=== PATIENT | female | born 1945 | race Caucasian/White ===

== ENCOUNTER 2016-10-07 02:40 | Observation (INO) | payer MEDICARE, OTHER ==
[~2016-10-07] VITALS: Ht 162.6 cm; Wt 85.5 kg
[2016-10-07] VITALS (9 sets, daily range): BP systolic 105–181; BP diastolic 62–102; PULSE 50–80; RESP 16–18; TEMP 96.4–98.5; O2SAT 8–100
[~2016-10-07 02:40] MED LIST: 1-ME1LIQ PO; ALLO100T PO; HYDR-2768 PO; LOPI600T PO; LORTA5 PO; METO50TA PO; OMEG100010 PO; OMEP20TA39 PO; PREM0.45 PO; TAB-TAB PO; VITA500C PO
[2016-10-07 03:34] LABS: AUTOMATED NEUTROPHIL # 4.3 TH/MM3 (1.8-7.7); BASOPHIL # 0.2 TH/MM3 (0-0.2); BASOPHIL % 2.1 % (0.0-2.0); EOSINOPHIL # 0.3 TH/MM3 (0-0.4); EOSINOPHIL % 4.1 % (0.0-4.0); HEMATOCRIT 41.5 % (35.0-46.0); LYMPHOCYTE # 2.1 TH/MM3 (1.0-4.8); MEAN CELL VOLUME 92.5 FL (80.0-100.0); MEAN CORPUSCULAR HGB CONC 33.5 % (32.0-36.0); NEUT % 56.8 % (16.0-70.0); PLATELET COUNT 196 TH/MM3 (150-450); RED BLOOD COUNT 4.48 MIL/MM3 (4.00-5.30); RED CELL DISTRIBUTION WIDTH 12.9 % (11.6-17.2); WHITE BLOOD COUNT 7.7 TH/MM3 (4.0-11.0)
[2016-10-07 03:35] LABS: HEMO FLAGS DIFF FINAL
[2016-10-07 03:40] LABS: CHLORIDE 103 MEQ/L (98-107); POTASSIUM 3.1 MEQ/L (3.5-5.1); SODIUM (NA) 141 MEQ/L (136-145)
[2016-10-07 03:44] LABS: ANION GAP 11 MEQ/L (5-15); BICARBONATE 27.1 MEQ/L (21.0-32.0); BLOOD UREA NITROGEN 16 MG/DL (7-18)
[2016-10-07] MEDS ORDERED: PANTOPRAZOLE SODIUM 40 MG VIAL IV PUSH ONE (03:45)
[2016-10-07] MEDS ORDERED: ONDANSETRON HCL 4 MG/2 ML VIAL IV PUSH ONE (03:45)
[2016-10-07] MEDS ORDERED: ASPIRIN 81 MG CHEW TAB CHEW ONE (03:45)
[2016-10-07] MEDS ORDERED: VITA500T PO (03:46)
[2016-10-07] MEDS ORDERED: AMLO10TA2 PO (03:46)
[2016-10-07] MEDS ORDERED: GEMF600 PO (03:46)
[2016-10-07] MEDS ORDERED: ALLO100T PO (03:46)
[2016-10-07] MEDS ORDERED: HYDR25TA5 PO (03:46)
[2016-10-07] MEDS ORDERED: FLUT1SPR9 EACH NARE (03:46)
[2016-10-07] MEDS ORDERED: OMEP20TA PO (03:46)
[2016-10-07] MEDS ORDERED: ALBU2TAB4 PO (03:46)
[2016-10-07] MEDS ORDERED: METO50TA PO (03:46)
[2016-10-07 03:47] LABS: ALT (GPT) 29 U/L (10-53); AST (GOT) 22 U/L (15-37); GLOMERULAR FILTRATION RATE 79 ML/MIN (>89)
[2016-10-07 03:49] LABS: TOTAL BILIRUBIN ADULT 0.5 MG/DL (0.2-1.0)
[2016-10-07 03:51] LABS: ALKALINE PHOSPHATASE 102 U/L (45-117)
[2016-10-07 03:55] LABS: MAGNESIUM 1.6 MG/DL (1.5-2.5)
[2016-10-07 04:02] LABS: APTT (PATIENT) 25.4 SEC (24.3-30.1); PROTHROMBIN TIME - PATIENT 10.5 SEC (9.8-11.6)
[2016-10-07 04:03] LABS: CREATINE KINASE 40 U/L (26-192)
--- NOTE | 2016-10-07 04:32 | RADHPO ---
EXAM DATE/TIME: 10/07/2016 03:57 [place] COMPARISON: No previous studies available for comparison. INDICATIONS : Chest pain starting last night MEDICAL HISTORY : None. SURGICAL HISTORY : None. ENCOUNTER: Initial ACUITY: 1 day PAIN SCORE: 7/10 LOCATION: Center of chest FINDINGS: A single view of the chest demonstrates the lungs to be symmetrically aerated without evidence of mas s, infiltrate or effusion. The cardiomediastinal contours are unremarkable. Osseous structures are intact. CONCLUSION: 1. No acute cardiopulmonary disease. Saul Fenton MD on October 07, 2016 at 4:31 Board Certified Radiologist. This report was verified electronically.
--- NOTE | 2016-10-07 05:29 | PD ---
HPI Chief Complaint: Chest Pain Time Seen by Provider: 03:43 Travel History International Travel<30 days: No Contact w/Intl Traveler<30days: No Traveled to known affect area: No History of Present Illness HPI 71-year-old female presents to the emergency department by private transportation the care of her spouse for evaluation of retrosternal chest pain that developed at 6 PM. Patient states pain was quite severe. Pain had dissipated without medication intervention by 9:30 and she went to sleep and was awakened again by severe pain@1:30 AM 10 over 10 in intensity. Due to persistent pain she decided to come to the emergency room for evaluation. Reportedly upon arrival pain was 8/10 in intensity. No referred neck jaw back shoulder arm pain no shortness of breath no sweats no nausea or vomiting and felt as if she needed to belch. Patient at this time rates her discomfort 0-1/ 10 in intensity. Patient denies any recent trauma or injury. Patient is visiting from [place]. No pleuritic chest pain no lower leg pain or swelling. Patient denies personal history of family history of clotting disorder. Patient has had negative stress test and cardiac catheterization in the past last cardiac catheterization was 5 years ago. Patient does not smoke cigarettes 9 years. Patient is being treated for hypertension and dyslipidemia both of which are well controlled. Patient did not take aspirin prior to arrival to the emergency department. Patient denies any abdominal pain. She is unable to identify exacerbating or alleviating factors. Patient has had no association of pain with dietary intake PFSH Past Medical History Narrative Medical Arthritis hypertension dyslipidemia COPD hiatal hernia prior stress test negative prior cardiac catheterization 5 years agonormal; no tobacco use 9 years; nursing notes reviewed Arthritis: Yes Cardiovascular Problems: Yes High Cholesterol: Yes COPD: Yes Diminished Hearing: No Fibromyalgia: Yes Gastrointestinal Disorders: Yes GERD: Yes Hiatal Hernia: Yes Hypertension: Yes Musculoskeletal: Yes Neurologic: Yes (FIBROMYALGIA) Respiratory: Yes ?: Not Tubal Ligation: Yes Past Surgical History Abdominal Surgery: Yes Appendectomy: Yes Cardiac Surgery: Yes (CARDIAC CATH) Gynecologic Surgery: Yes (TUBAL LIGATION, D&C, HYSTERECTOMY) Hysterectomy: Yes Other Surgery: Yes Social History Alcohol Use: Yes (OCCAS) Tobacco Use: Yes Substance Use: No Allergies-Medications (Allergen,Severity, Reaction): Coded Allergies: MADY Inhibitors (Verified Allergy, Severe, Anaphylaxis, 10/07/16) Lisinopril (Verified Allergy, Severe, Anaphylaxis, 10/07/16) Sulfa (Verified Allergy, Intermediate, RASH/ITCH, 10/19/13) Reported Meds & Prescriptions Reported Meds & Active Scripts Active Reported Vitamin C (Ascorbic Acid) 500 Mg Tab 500 Mg PO Flonase Allergy Relief Children Nasal [place] (Fluticasone Nasal [place]) 50 Mcg/ Act [place] 1 [place] EACH NARE DAILY 50 mcg/spray Albuterol (Albuterol Sulfate) 2 Mg Tab 2 Mg PO TID Omeprazole 20 Mg Tab 20 Mg PO DAILY Hydrochlorothiazide 25 Mg Tab 25 Mg PO BID Amlodipine (Amlodipine Besylate) 10 Mg Tab 10 Mg PO DAILY Metoprolol Tartrate 50 Mg Tab 50 Mg PO BID Lopid (Gemfibrozil) 600 Mg Tab 600 Mg PO BIDAC Take 30 minutes prior to breakfast and dinner Allopurinol 100 Mg Tab 100 Mg PO DAILY Review of Systems Except as stated in HPI: all other systems reviewed are Neg Physical Exam Narrative GENERAL: Well-nourished female in no acute distress no respiratory distress SKIN: Warm and dry. HEAD: Normocephalic. EYES: No scleral icterus. No injection or drainage. NECK: Supple, trachea midline. No JVD or lymphadenopathy. CARDIOVASCULAR: Regular rate and rhythm without murmurs, gallops, or rubs. RESPIRATORY: Breath sounds equal bilaterally. No accessory muscle use. GASTROINTESTINAL: Abdomen soft, non-tender, nondistended. MUSCULOSKELETAL: No cyanosis, or edema. Bilateral radial and dorsalis pedis pulse 2+ to palpation BACK: Nontender without obvious deformity. No CVA tenderness. Data Data Last Documented VS Vital Signs Date Time Temp Pulse Resp B/P Pulse Ox O2 Delivery O2 Flow Rate FiO2 10/07/16 04:23 78 168/62 99 Room Air 10/07/16 04:06 16 10/07/16 03:00 98.5 Orders Complete Blood Count With Diff (10/07/16 03:22) Comprehensive Metabolic Panel (10/07/16 03:22) Troponin I (10/07/16 03:22) B-Type Natriuretic Peptide (10/07/16 03:22) Electrocardiogram (10/07/16 ) Act Partial Throm Time (Ptt) (10/07/16 03:43) Prothrombin Time / Inr (Pt) (10/07/16 03:43) Chest, Single Ap (10/07/16 ) Ondansetron Inj (Zofran Inj) (10/07/16 03:45) Pantoprazole Inj (Protonix Inj) (10/07/16 03:45) Aspirin Chew (Aspirin Chew) (10/07/16 03:45) Ckmb (Isoenzyme) Profile (10/07/16 03:15) Magnesium (Mg) (10/07/16 03:15) Potassium Chloride (Kcl) (10/07/16 05:30) Labs Laboratory Tests Test 10/07/16 03:15 White Blood Count 7.7 TH/MM3 Red Blood Count 4.48 MIL/MM3 Hemoglobin 13.9 GM/DL Hematocrit 41.5 % Mean Corpuscular Volume 92.5 FL Mean Corpuscular Hemoglobin 31.0 PG Mean Corpuscular Hemoglobin 33.5 % Concent Red Cell Distribution Width 12.9 % Platelet Count 196 TH/MM3 Mean Platelet Volume 9.6 FL Neutrophils (%) (Auto) 56.8 % Lymphocytes (%) (Auto) 27.0 % Monocytes (%) (Auto) 10.0 % Eosinophils (%) (Auto) 4.1 % Basophils (%) (Auto) 2.1 % Neutrophils # (Auto) 4.3 TH/MM3 Lymphocytes # (Auto) 2.1 TH/MM3 Monocytes # (Auto) 0.8 TH/MM3 Eosinophils # (Auto) 0.3 TH/MM3 Basophils # (Auto) 0.2 TH/MM3 CBC Comment DIFF FINAL Differential Comment Prothrombin Time 10.5 SEC Prothromb Time International 1.0 RATIO Ratio Activated Partial 25.4 SEC Thromboplast Time Sodium Level 141 MEQ/L Potassium Level 3.1 MEQ/L Chloride Level 103 MEQ/L Carbon Dioxide Level 27.1 MEQ/L Anion Gap 11 MEQ/L Blood Urea Nitrogen 16 MG/DL Creatinine 0.73 MG/DL Estimat Glomerular Filtration 79 ML/MIN Rate Random Glucose 136 MG/DL Calcium Level 9.3 MG/DL Magnesium Level 1.6 MG/DL Total Bilirubin 0.5 MG/DL Aspartate Amino Transf 22 U/L (AST/SGOT) Alanine Aminotransferase 29 U/L (ALT/SGPT) Alkaline Phosphatase 102 U/L Total Creatine Kinase 40 U/L Troponin I LESS THAN 0.02 NG/ML B-Type Natriuretic Peptide 20 PG/ML Total Protein 7.3 GM/DL Albumin 3.7 GM/DL MDM Medical Decision Making Medical Screen Exam Complete: Yes Emergency Medical Condition: Yes Medical Record Reviewed: Yes Interpretation(s) Vital Signs Date Time Temp Pulse Resp B/P Pulse Ox O2 Delivery O2 Flow Rate FiO2 10/07/16 04:23 78 168/62 99 Room Air 10/07/16 04:06 61 16 99 Room Air 10/07/16 03:00 98.5 66 18 161/73 99 10/07/16 03:00 66 18 161/73 8 Room Air 10/07/16 03:00 66 98 Room Air Last Impressions Chest X-Ray 10/07/16 0000 Signed Impressions: Service Date/Time: Friday, October 07, 2016 03:57 - CONCLUSION: 1. No acute cardiopulmonary disease. Saul Fenton MD CBC & BMP Diagram 10/07/16 03:15 Differential Diagnosis Chest pain, ACS, myocardial infarction, esophageal spasm, hiatal hernia, musculoskeletal pain, PE Narrative Course Patient placed on marketing information analyst IV access obtained EKG performed shows no acute ST elevation or injury pattern Patient administered aspirin 162 mg by mouth Protonix 40 mg IV and Zofran 4 mg IV as discomfort is 0-1/10 intensity at this time After Protonix and Zofran pain is consistently 0/10 in intensity; in view of patient's risk factor profile female over the age of 50 with hypertension and dyslipidemia as well as admit to chest pain center per protocol. Physician Communication Physician Communication call placed to [facility] service for [facility] protocol Diagnosis Primary Impression: Chest pain Qualified Code: R07.2 - Precordial pain Admitting Information Admitting Physician Requests: Observation Khadra Roman MD Oct 07, 2016 05:29
[2016-10-07] MEDS ORDERED: SODIUM CHLORIDE 0.9% FLUSH 5 ML FLUSH IVF PRN ×2 (05:30)
[2016-10-07] MEDS ORDERED: POTASSIUM CHLORIDE 20 MEQ CONTROLLED RELEASE TAB PO ONE (05:30)
[2016-10-07] MEDS ORDERED: NITROGLYCERIN 0.4 MG SL 25 TABS/BTL SL PRN (06:45)
[2016-10-07 06:56] LABS: CREATINE KINASE 48 U/L (26-192)
[2016-10-07] MEDS ORDERED: GEMFIBROZIL 600 MG TAB PO SCH (07:00)
[2016-10-07] MEDS ORDERED: HYDROCHLOROTHIAZIDE 25 MG TAB PO SCH (09:00)
[2016-10-07] MEDS ORDERED: SODIUM CHLORIDE 0.9% FLUSH 5 ML FLUSH IVF SCH ×2 (09:00)
[2016-10-07] MEDS ORDERED: METOPROLOL TARTRATE 50 MG TAB PO SCH (09:00)
[2016-10-07] MEDS ORDERED: PANTOPRAZOLE SOD 20 MG DELAYED RELEASE TAB PO SCH (09:00)
[2016-10-07] MEDS ORDERED: ALLOPURINOL 100 MG TAB PO SCH (09:00)
--- NOTE | 2016-10-07 09:34 | HHI.HP ---
[facility] Non-Staff Admission Diagnosis chest pain Diagnoses: (1) Chest pain Diagnosis: Principal (2) Hypertension Diagnosis: Secondary (3) Hyperlipidemia Diagnosis: Secondary Chief Complaint: Chest pain Travel History International Travel<30 Days: No Contact w/Intl Traveler <30 Da: No Traveled to Known Affected Are: No History of Present Illness 71-year-old female with known history of hypertension, hyperlipidemia, chronic obstructive pulmonary disease, gastroesophageal reflux, fibromyalgia who presented to the hospital for chest pain. Patient states that the pain started approximately 6 PM last night after she ate dinner. It is located in the epigastric region, she describes as a burning type pain with increased belching. She took Tums and keenan with resolution of the discomfort. She went to sleep last night approximately 9 PM and woke up at 1 AM with the same burning type sensation in the epigastric region. She woke her up and they came to the ER for evaluation. Patient denies any nausea, vomiting, diaphoresis, shortness breath, dyspnea. The patient does have a cardiac history with hypertension, hyperlipidemia. She has had cardiac catheterization , stress test done roughly 56 years ago by forensic materials engineer in [place]. She indicates that the catheterization was clear without any signs of disease. Patient is currently asymptomatic. Patient wants to go home and follow-up with her primary medical doctor for further evaluation and testing. Review of Systems Constitutional: DENIES: Diaphoretic episodes, Fatigue, Fever, Weight gain, Weight loss, Chills, Dizziness, Change in appetite, Night Sweats Eyes: DENIES: Blurred vision, Diplopia, Eye inflammation, Eye pain, Vision loss , Double Vision Ears, nose, mouth, throat: DENIES: Vertigo, Nasal discharge, Throat pain, Ear Pain, Running Nose, Sinus Pain Respiratory: DENIES: Apneas, Cough, Snoring, Wheezing, Hemoptysis, Sputum production, Shortness of breath Cardiovascular: COMPLAINS OF: Chest pain, DENIES: Palpitations, Syncope, Dyspnea on Exertion, Lower Extremity Edema, Orthopnea Gastrointestinal: COMPLAINS OF: Abdominal pain, DENIES: Black stools, Bloody stools, Constipation, Diarrhea, Nausea, Vomiting, Difficulty Swallowing, Anorexia Neurologic: DENIES: Abnormal gait, Headache, Localized weakness, Paresthesias, Seizures, Speech Problems, Tremor, Poor Balance Psychiatric: DENIES: Anxiety, Confusion, Mood changes, Depression Past Family Social History Past Medical History Hypertension Hyperlipidemia Chronic obstructive pulmonary disease Gastroesophageal reflux Fibromyalgia Gout Past Surgical History Appendectomy Tubal ligation Hysterectomy Cardiac catheterization Cholecystectomy Abdominal hernia repair Reported Medications Reported Meds & Active Scripts Active Reported Vitamin C (Ascorbic Acid) 500 Mg Tab 500 Mg PO Flonase Allergy Relief Children Nasal [place] (Fluticasone Nasal [place]) 50 Mcg/ Act [place] 1 [place] EACH NARE DAILY 50 mcg/spray Albuterol (Albuterol Sulfate) 2 Mg Tab 2 Mg PO TID Omeprazole 20 Mg Tab 20 Mg PO DAILY Hydrochlorothiazide 25 Mg Tab 25 Mg PO BID Amlodipine (Amlodipine Besylate) 10 Mg Tab 10 Mg PO DAILY Metoprolol Tartrate 50 Mg Tab 50 Mg PO BID Lopid (Gemfibrozil) 600 Mg Tab 600 Mg PO BIDAC Take 30 minutes prior to breakfast and dinner Allopurinol 100 Mg Tab 100 Mg PO DAILY Allergies: Coded Allergies: MADY Inhibitors (Verified Allergy, Severe, Anaphylaxis, 10/07/16) Lisinopril (Verified Allergy, Severe, Anaphylaxis, 10/07/16) Sulfa (Verified Allergy, Intermediate, RASH/ITCH, 10/19/13) Family History Reviewed and significant for mother having congestive heart failure Social History Patient quit smoking 10 years ago, prior to that she smoked up to a pack a cigarettes a day since she was 12 years old. Patient rates alcohol rarely. Denies any illicit drugs Physical Exam Vital Signs Vital Signs Date Time Temp Pulse Resp B/P Pulse Ox O2 Delivery O2 Flow Rate FiO2 10/07/16 08:46 96.4 50 18 181/102 99 10/07/16 08:20 60 16 105/75 99 Room Air 10/07/16 06:16 63 16 160/66 99 Room Air 10/07/16 05:49 77 16 172/67 99 Room Air 10/07/16 04:23 99 21 10/07/16 04:23 78 168/62 99 Room Air 10/07/16 04:06 61 16 99 Room Air 10/07/16 03:00 98.5 66 18 161/73 99 10/07/16 03:00 66 18 161/73 8 Room Air 10/07/16 03:00 66 98 Room Air Physical Exam GENERAL: Well-developed, well-nourished, in no acute distress. alert and orientated HEENT: Head is normocephalic without any lesions or masses noted. Facial features are symmetric. Eyes: Pupils equal round reactive to light. Extraocular muscles are intact. Conjunctivae were clear. Oropharyngeal: Pharynx without any erythema edema. Tongue is midline without deviation. Buccal mucosa is moist without any masses or lesions NECK: Supple without any masses. Trachea midline no deviation. No JVD, no bruits are appreciated CARDIAC: Regular rhythm, regular rate. S1/S2 are heard. No murmurs gallops or rubs. LUNGS: Clear to auscultation bilaterally. No wheeze, rhonchi or rales. No use of accessory muscles on inspiration or expiration. ABDOMEN: Soft, nontender. Nondistended. Bowel sounds heard in all 4 quadrants. No organomegaly or masses. Negative rebound, negative guarding EXTREMITIES: No edema, pulses are equal bilaterally. No cyanosis or clubbing NEUROLOGY: Mood and affect appear appropriate. Cranial nerves II through XII grossly intact. Muscle strength 5/5 in upper and lower extremities bilaterally. Deep tendon reflexes are 2+ in upper and lower extremities bilaterally. Laboratory Laboratory Tests Test 10/07/16 10/07/16 03:15 05:45 White Blood Count 7.7 Red Blood Count 4.48 Hemoglobin 13.9 Hematocrit 41.5 Mean Corpuscular Volume 92.5 Mean Corpuscular Hemoglobin 31.0 Mean Corpuscular Hemoglobin 33.5 Concent Red Cell Distribution Width 12.9 Platelet Count 196 Mean Platelet Volume 9.6 Neutrophils (%) (Auto) 56.8 Lymphocytes (%) (Auto) 27.0 Monocytes (%) (Auto) 10.0 Eosinophils (%) (Auto) 4.1 Basophils (%) (Auto) 2.1 Neutrophils # (Auto) 4.3 Lymphocytes # (Auto) 2.1 Monocytes # (Auto) 0.8 Eosinophils # (Auto) 0.3 Basophils # (Auto) 0.2 CBC Comment DIFF FINAL Differential Comment Prothrombin Time 10.5 Prothromb Time International 1.0 Ratio Activated Partial 25.4 Thromboplast Time Sodium Level 141 Potassium Level 3.1 Chloride Level 103 Carbon Dioxide Level 27.1 Anion Gap 11 Blood Urea Nitrogen 16 Creatinine 0.73 Estimat Glomerular Filtration 79 Rate Random Glucose 136 Calcium Level 9.3 Magnesium Level 1.6 Total Bilirubin 0.5 Aspartate Amino Transf 22 (AST/SGOT) Alanine Aminotransferase 29 (ALT/SGPT) Alkaline Phosphatase 102 Total Creatine Kinase 40 48 Troponin I LESS THAN 0.02 LESS THAN 0.02 B-Type Natriuretic Peptide 20 Total Protein 7.3 Albumin 3.7 Result Diagram: 10/07/165 10/07/16 0315 Imaging Last Impressions Chest X-Ray 10/07/16 0000 Signed Impressions: Service Date/Time: Friday, October 07, 2016 03:57 - CONCLUSION: 1. No acute cardiopulmonary disease. Saul Fenton MD Assessment and Plan Assessment and Plan Chest pain: Patient with increased risk factors include age, hypertension, hyperlipidemia, history of tobacco use, family history of heart disease. Patient had been ruled out for acute coronary event with serial cardiac enzymes which remain negative, serial EKGs which reviewed by myself that shows sinus bradycardia with borderline first-degree AV block without any changes. Patient does not want to pursue any formal cardiac testing at this time. She wants to go back to [place] and follow-up with her primary medical doctor for further evaluation and management. Stress test was offered to the patient for complete evaluation, however patient is deferring at this time, patient was counseled on her increased risk factors and her discomfort could be from underlying heart disease. Continue aspirin and nitroglycerin as needed Hypertension, hypokalemia: Continue home medications Fibromyalgia, gouty arthritis: Continue home medications DVT prevention: Sequential compression devices Written by Yovani Staples PA-C, acting as scribe for Dr. Almaraz on 10/07/16 at 1000. The documentation accurately reflects the work and decisions performed face-to- face by Dr. Almaraz on 10/07/16 at 1000. Discharge disposition Discharge home in stable condition Activity: Ad jass. Diet: Healthy heart diet Medications per medication reconciliation Follow-up primary medical doctor one week Problem Qualifiers (1) Chest pain: Qualified Code: R07.2 - Precordial pain (2) Hypertension: Qualified Code: I15.9 - Secondary hypertension (3) Hyperlipidemia: Qualified Code: E78.5 - Hyperlipidemia, unspecified hyperlipidemia type Yovani Staples Oct 07, 2016 09:34
--- NOTE | 2016-10-07 10:02 | HHI.DCPOC ---
Discharge Care Plan Diagnosis: (1) Chest pain Goals to Promote Your Health * To prevent worsening of your condition and complications * To maintain your health at the optimal level Directions to Meet Your Goals Take your medications as prescribed Follow your dietary instruction Follow activity as directed Keep your appointments as scheduled Take your immunizations and boosters as scheduled If your symptoms worsen call your PCP, if no PCP go to Urgent Care Center or Emergency Room Smoking is Dangerous to Your Health. Avoid second hand smoke Call the 24-hour hour crisis hotline for domestic abuse at Yovani Staples Oct 07, 2016 10:02
[2016-10-07 10:22] LABS: CREATINE KINASE 34 U/L (26-192)
--- NOTE | 2016-10-07 16:57 | EKG ---
Date Performed: 10/07/2016 Time Performed: 03:02:40 PTAGE: 71 years EKG: Sinus bradycardia Compared to prior tracing no significant change Normal ECG except for rat e PREVIOUS TRACING : 10/19/2013 17.49 DOCTOR: Roger Gonzales Interpretating Date/Time 10/07/2016 16:54:21
--- NOTE | 2016-10-07 16:58 | EKG ---
Date Performed: 10/07/2016 Time Performed: 06:35:14 PTAGE: 71 years EKG: Sinus bradycardia with borderline 1st degree A-V block. Compared to prior tracing no signif icant change Borderline ECG PREVIOUS TRACING : 10/07/2016 03.02 DOCTOR: Roger Gonzales Interpretating Date/Time 10/07/2016 16:54:31
--- NOTE | 2016-10-07 17:00 | EKG ---
Date Performed: 10/07/2016 Time Performed: 09:08:04 PTAGE: 71 years EKG: Sinus bradycardia. Compared to prior tracing no significant change Normal ECG except for ra te PREVIOUS TRACING : 10/07/2016 06.35 DOCTOR: Roger Gonzales Interpretating Date/Time 10/07/2016 16:55:14
[2016-10-08] MEDS ORDERED: INFLUENZA VIRUS VACCINE (QUADRIVALENT) 0.5 ML SYR IM ONE (10:00)
== END 2016-10-07 11:14 | disposition home or self-care (01) ==
LOC: PHED 02:40 → PHEDA 05:32 → PH3A 08:33
PROVIDERS: ADMIT Family Medicine; ATTEND Family Medicine
DX: R07.2 Precordial pain (principal); I10 Essential (primary) hypertension; E78.5 Hyperlipidemia, unspecified; J44.9 Chronic obstructive pulmonary disease, unspecified; K44.9 Diaphragmatic hernia without obstruction or gangrene; M79.7 Fibromyalgia; K21.9 Gastro-esophageal reflux disease without esophagitis; R06.02 Shortness of breath; Z82.49 Family history of ischemic heart disease and other diseases of the circulatory system
CPT/HCPCS: 71010; 80053; 82550; 83735; 83880; 84484; 85025; 85610; 85730; 93005; 96374; 96375; 99285; C9113; G0378; J2405